=== PATIENT | female | born 1955 | race Caucasian/White ===

== ENCOUNTER 2022-07-02 06:54 | Emergency (ER) | payer MEDICARE, OTHER ==
[~2022-07-02] VITALS: Ht 160 cm; Wt 86.4 kg
[2022-07-02 07:16] VITALS: BP 136/60
[2022-07-02] MEDS ORDERED: IBUPROFEN 600 MG TABLET PO ONE (07:30)
[2022-07-02] MEDS ORDERED: OXYC-490 PO (07:46)
[2022-07-02] MEDS ORDERED: ALPR-707 PO (07:46)
[2022-07-02] MEDS ORDERED: TRAZ-257 PO (07:46)
[2022-07-02] MEDS ORDERED: MAGN400T57 PO (07:46)
[2022-07-02] MEDS ORDERED: OMEP20 PO (07:46)
[2022-07-02] MEDS ORDERED: BENA20TA83 PO (07:46)
[2022-07-02] MEDS ORDERED: HYDR-4870 PO (07:46)
[2022-07-02] MEDS ORDERED: OXYC10TA59 PO (07:46)
[2022-07-02] MEDS ORDERED: CARV3 PO (07:46)
[2022-07-02] MEDS ORDERED: NAPR-1025 PO (07:46)
== END 2022-07-02 09:00 | disposition home or self-care (01) ==
LOC: EMS 06:56
DX: G89.29 Other chronic pain (principal); M54.50 Low back pain, unspecified; F41.9 Anxiety disorder, unspecified; F32.A Depression, unspecified; M79.7 Fibromyalgia; Z98.890 Other specified postprocedural states
CPT/HCPCS: 99283